=== PATIENT | female | born 1985 | race African-American/Black ===

== ENCOUNTER 2017-01-09 14:23 | Emergency (ER) | payer MEDICAID ==
[~2017-01-09] VITALS: Ht 165.1 cm; Wt 99.3 kg
[~2017-01-09 14:23] MED LIST: ALBUTEROL SULF8.5 GM INH; BIAXIN500 MG ORAL; ERYTHROMYCIN3.5 GM LEFT EYE; FIORICET1 EA ORAL; IBUPROFEN600 MG ORAL; LEVOTHYROXINE75 MCG ORAL; LEVOTHYROXINE88 MCG ORAL; METRONIDAZOLE500 MG ORAL; ONDANSETRON ODT4 MG ORAL; PREDNISONE20 MG ORAL; TRAMADOL HCL50 MG ORAL
[2017-01-09] MEDS ORDERED: Norco 5mg/325mg tab ORAL ONE (15:00)
[2017-01-09 15:01] VITALS: BP 126/74
--- NOTE | 2017-01-09 15:19 | Emergency Room Report ---
History of Present Illness General Chief Complaint: General Complaint Source: Patient, Medical Record Present Illness HPI 31-year-old female presents to the emergency department complaining of 5/10 in severity with intermittent 8/10 in severity exacerbations of right localized adnexal pain times one day. Patient states that she is currently on her menstrual cycle for the past 3 days and notes her cycle to be heavier than normal. Patient states that she is regular monthly she takes oral contraception and has had no prior history of ovarian cysts, ectopic pregnancies. denies vaginal discharge, lesions, or tender lymph nodes. Patient states that she does not have an appendix. Patient reports some nausea during episodes of pain. Patient denies dysuria, frequency, vomiting, constipation or diarrhea. She denies fevers or chills. Denies CP, Palpitations, LOC, AMS, dizziness, Changes in Vision, Sensation, paresthesias, or a sudden severe headache. Allergies: Coded Allergies: [place] (Verified Allergy, Unknown, BLISTERS, 04/26/15) PINEAPPLE (Verified Adverse Reaction, Unknown, VOMITTING, 04/26/15) Patient History Past Medical History: see triage record Past Surgical History: none Pertinent Family History: none Last Menstrual Period: 01/07/17 Now: No Reviewed Nursing Documentation: PMH: Agreed, PSxH: Agreed Nursing Documentation-PMH Past Medical History: No History, Except For Review of Systems All Other Systems: negative except mentioned in HPI Physical Exam Vital Signs Date Time Temp Pulse Resp B/P (MAP) Pulse Ox O2 Delivery O2 Flow Rate FiO2 01/09/17 14:27 98.6 80 18 126/74 99 Room Air Sp02 EP Interpretation: reviewed, normal General Appearance: no apparent distress, alert, GCS 15, non-toxic Head: normocephalic, atraumatic Eyes: bilateral eye normal inspection, bilateral eye PERRL ENT: hearing grossly normal, normal voice Neck: full range of motion Respiratory: lungs clear, normal breath sounds, speaking full sentences Cardiovascular #1: regular rate, rhythm Gastrointestinal: normal bowel sounds, non tender, soft, no guarding, no rebound, other - normal exam Rectal: deferred Genitourinary: normal inspection, no CVA tenderness, bladder normal, ext genitalia/vag normal, other - right adnexal TTP, pt. currently has tampon in and wants to defer speculum exam as US is pending Musculoskeletal: back normal, gait/station normal, normal range of motion, non- tender Neurologic: alert, oriented x3, responsive, motor strength/tone normal, sensory intact, speech normal Skin: normal color, no rash, warm/dry, well hydrated Lymphatic: no adenopathy Medical Decision Making PA Attestation Dr. Aguilera is my supervising Physician whom patient management has been discussed with. Diagnostic Impression: Primary Impression: Uterine fibroid Qualified Codes: D25.9 - Leiomyoma of uterus, unspecified Additional Impression: Adnexal pain ER Course 31-year-old female presents to the emergency department complaining of 5/10 in severity with intermittent 8/10 in severity exacerbations of right localized adnexal pain times one day. Patient states that she is currently on her menstrual cycle for the past 3 days and notes her cycle to be heavier than normal. Patient states that she is regular monthly she takes oral contraception and has had no prior history of ovarian cysts, ectopic pregnancies. denies vaginal discharge, lesions, or tender lymph nodes. Patient states that she does not have an appendix. Patient reports some nausea during episodes of pain. Patient denies dysuria, frequency, vomiting, constipation or diarrhea. She denies fevers or chills. Denies CP, Palpitations, LOC, AMS, dizziness, Changes in Vision, Sensation, paresthesias, or a sudden severe headache. Ddx considered but are not limited to Diverticulitis, acute appy, ovarian torsion, ectopic , PID tubo-ovarian abscess, anemia ovarian cyst. Vital signs: are WNL, pt. is afebrile H&PE are most consistent with possible ovarian cyst, however due to presentation will r/o torsion or ectopic. - I do not suspect significant blood loss that would require transfusion at this time. pt. does not exhibit clinical signs of anemia. ORDERS: -UA: unremarkable -URINE HCG:Negative -Pelvic US Complete: "Uterine fibroid noted, small follicles in the bilateral ovaries, no free-fluid, no ovarian torsion" --Per official radiology report- Please see report for specific details. ED INTERVENTIONS: - 5mg [place] -d/w pt. the results of her US, and recommended OBGYN follow up. DISCHARGE: At this time pt. is stable for d/c to home. Will provide printed patient care instructions, and any necessary prescriptions. Care plan and follow up instructions have been discussed with the patient prior to discharge. Labs Test 01/09/17 14:55 Urine Color Pale yellow Urine Appearance Clear Urine pH 5 (4.5-8.0) Urine Specific [place] 1.020 (1.005-1.035) Urine Protein Negative (NEGATIVE) Urine Glucose (UA) Negative (NEGATIVE) Urine Ketones Negative (NEGATIVE) Urine Occult Blood Negative (NEGATIVE) Urine Nitrite Negative (NEGATIVE) Urine Bilirubin Negative (NEGATIVE) Urine Urobilinogen Normal MG/DL (0.0-1.0) Urine Leukocyte Esterase Negative (NEGATIVE) Urine HCG, Qualitative Negative Last Vital Signs Date Time Temp Pulse Resp B/P (MAP) Pulse Ox O2 Delivery O2 Flow Rate FiO2 01/09/17 15:01 98.6 70 18 126/74 99 Room Air Disposition: HOME, SELF-CARE Condition: Stable Scripts Iron,Carbonyl/Ascorbic Acid (IRON 100-VITAMIN C TABLET) 1 Each Tablet 1 EACH PO DAILY, #30 TAB Prov: Rosaura Seals 01/09/17 Ibuprofen* (MOTRIN*) 600 Mg Tablet 600 MG ORAL THREE TIMES A DAY, #30 TAB 0 Refills Prov: Rosaura Seals 01/09/17 Departure Forms: Return to Work Return to Work Date: Jan 11, 2017 Work Restrictions: None Return to Full Activity: Jan 11, 2017 Patient Instructions: Uterine Fibroids Additional Instructions: Take medications as directed. Follow up with a Primary Care Provider or OBGYN in 3-5 days, even if your symptoms have resolved. --Please review list of primary care clinics, if you do not already have a primary care provider Return sooner to ED if new symptoms occur, or current symptoms become worse. - Please note that this Emergency Department Report was dictated using [employer]career development specialist technology software, occasionally this can lead to erroneous entry secondary to interpretation by the dictation equipment. Rosaura Seals Jan 09, 2017 15:19
[2017-01-09 15:22] LABS: APPEARANCE,URINE CLEAR; KETONES,URINE NEGATIVE (NEGATIVE); LEUKOCYTE ESTERASE ,URINE NEGATIVE (NEGATIVE); NITRITE,URINE NEGATIVE (NEGATIVE); PH,URINE 5 (4.5-8.0); PROTEIN,URINE NEGATIVE (NEGATIVE); UROBILINOGEN,URINE NORMAL MG/DL (0.0-1.0)
[2017-01-09] MEDS ORDERED: Ketorolac 60mg Inj IM ONE (16:30)
[2017-01-09] MEDS ORDERED: IRON 100-VITAM1 EACH PO (17:16)
[2017-01-09] MEDS ORDERED: IBUPROFEN600 MG ORAL (17:16)
--- NOTE | 2017-01-09 17:20 | Diagnostic Imaging Report ---
Indication: Right adnexal pain, heavy menstruation Technique: Transabdominal and transvaginal images Comparison: Findings: Uterus measures 7.8 cm length by 4 cm AP. The endometrium measures 2 mm thick. There is a slightly hyperechoic 15 x 12 mm uterine fundal fibroid. Right ovary measures 3.3 cm in length. The left ovary measures 3 cm in length. No adnexal mass demonstrated. No free cul-de-sac fluid Impression: Small uterine fundal fibroid. Otherwise unremarkable
[2017-01-09 17:52] VITALS: BP 122/72
== END 2017-01-09 17:52 | disposition home or self-care (01) ==
LOC: EMR 17:32
DX: D25.9 Leiomyoma of uterus, unspecified (principal); R10.2 Pelvic and perineal pain
CPT/HCPCS: 76830; 76856; 81003; 81025; 96372; 99284

== ENCOUNTER 2017-07-31 09:44 | Emergency (ER) | payer MEDICAID ==
[~2017-07-31] VITALS: Ht 165.1 cm; Wt 103.0 kg
[~2017-07-31 09:44] MED LIST changes: +IRON 100-VITAM1 EACH PO
[2017-07-31] MEDS ORDERED: SRONYX (09:54)
[2017-07-31 10:20] VITALS: BP 132/76
[2017-07-31 10:30] VITALS: BP 132/76
[2017-07-31] MEDS ORDERED: ROBAXIN-750750 MG PO (10:33)
[2017-07-31] MEDS ORDERED: IBUPROFEN600 MG ORAL (10:33)
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
== END 2017-07-31 10:30 | disposition home or self-care (01) ==
LOC: EMR 10:17
DX: S33.5XXA Sprain of ligaments of lumbar spine, initial encounter (principal); V43.52XA Car driver injured in collision with other type car in traffic accident, initial encounter; Y92.410 Unspecified street and highway as the place of occurrence of the external cause; Z91.018 Allergy to other foods
CPT/HCPCS: 99284

== ENCOUNTER 2018-11-30 20:09 | Emergency (ER) | payer MEDICAID ==
[~2018-11-30] VITALS: Ht 165.1 cm; Wt 104.8 kg
[~2018-11-30 20:09] MED LIST changes: +ROBAXIN-750750 MG PO; +SRONYX
--- NOTE | 2018-11-30 20:29 | NUR ---
ED Nurse Note: pt walked in c/o dry cough, body ache, chest pain and sorethroat x 1 wk, pt denies fever nor nasal congestion. no cough at this time, airway intact, will cont monitor.
[2018-11-30 20:31] VITALS: BP 124/83
--- NOTE | 2018-11-30 20:59 | Emergency Room Report ---
History of Present Illness General Chief Complaint: Upper Respiratory Illness Source: Patient Present Illness HPI Patient presents with 3 weeks of cough. She was seen a month ago by her doctor and prescribed an inhaler. She is underneath your vent with dust at her work she is a cashier receptionist. She is not exposed to cigarette smoke. She has some posttussive vomiting on occasionally. The phlegm is clear. She denies any chest pain. There is no calf pain or leg swelling. She rates the discomfort in her chest is 2/10 and mainly with coughing. No fevers, chills, sore throat, palpitations, nausea, diarrhea, dysuria, abdominal pain, joint pain, rashes, depression, anxiety, visual changes, headache. Allergies: Coded Allergies: [place] (Verified Allergy, Unknown, BLISTERS, 04/26/15) PINEAPPLE (Verified Adverse Reaction, Unknown, VOMITTING, 04/26/15) Patient History Past Medical History: see triage record Past Surgical History: judith, Social History: Denies: smoking Social History Narrative [employer] Last Menstrual Period: 10/2018 Now: No : 1 Para: 1 Reviewed Nursing Documentation: PMH: Agreed; PSxH: Agreed Review of Systems All Other Systems: negative except mentioned in HPI Physical Exam Vital Signs Date Time Temp Pulse Resp B/P (MAP) Pulse Ox O2 Delivery O2 Flow Rate FiO2 11/30/18 20:18 98.2 84 16 124/83 (97) 97 Room Air Sp02 EP Interpretation: reviewed, normal General Appearance: well appearing, no apparent distress, GCS 15 Head: normocephalic, atraumatic Eyes: bilateral eye normal inspection, bilateral eye PERRL, bilateral eye EOMI ENT: normal pharynx, moist mucus membranes Neck: full range of motion Respiratory: chest non-tender, lungs clear, normal breath sounds Cardiovascular #1: regular rate, rhythm Cardiovascular #2: 2+ radial (R) Gastrointestinal: normal inspection, overweight Genitourinary: no CVA tenderness Musculoskeletal: back normal, gait/station normal, no calf tenderness Neurologic: alert, oriented x3, grossly normal Psychiatric: mood/affect normal Skin: no rash Medical Decision Making Diagnostic Impression: Primary Impression: Cough Additional Impression: Bronchospasm ER Course Patient presents with persistent nonproductive cough. Differential includes bronchospasm, bronchitis, viral syndrome, pulmonary embolus amongst others. no evidence of bacterial etiology. The patient will be given prednisone and a breathing treatment here. Improved with breathing treatment. Discussed assessment and treatment plan with patient. She understands. No medical emergency at this time. Patient stable for outpatient observation and treatment Last Vital Signs Date Time Temp Pulse Resp B/P (MAP) Pulse Ox O2 Delivery O2 Flow Rate FiO2 11/30/18 22:04 98.2 80 18 120/86 99 Room Air 11/30/18 21:22 21 Status: improved Disposition: HOME, SELF-CARE Condition: Improved Scripts Prednisone* (PREDNISONE*) 20 Mg Tablet 40 MG ORAL DAILY, #10 TAB Prov: Nick Hardy MD 11/30/18 Albuterol Sulfate* (ALBUTEROL SULFATE MDI*) 8.5 Gm Hfa.aer.ad 2 PUFF INH Q6H, #1 EA 0 Refills Prov: Nick Hardy MD 11/30/18 Guaifenesin/Codeine Phos* (ROBITUSSIN AC*) 118 Ml Liquid 1 TSP ORAL Q6H PRN for For Cough, #118 ML 0 Refills Prov: Nick Hardy MD 11/30/18 Nick Hardy MD Nov 30, 2018 20:59
[2018-11-30] MEDS ORDERED: Albuterol ud Inhalation HHN ONE (21:00)
[2018-11-30] MEDS ORDERED: Ipratropium 0.02% Inh Soln 2.5ml UD HHN ONE (21:00)
--- NOTE | 2018-11-30 21:07 | NUR ---
ED Nurse Note: RT at the bedside for breathing tx.
[2018-11-30] MEDS ORDERED: GUAIFENESIN-CO118 M1 ORAL (21:53)
[2018-11-30] MEDS ORDERED: ALBUTEROL SULF8.5 GM INH (21:53)
[2018-11-30] MEDS ORDERED: PREDNISONE20 MG ORAL (21:53)
[2018-11-30 22:04] VITALS: BP 120/86
--- NOTE | 2018-11-30 22:04 | NUR ---
ED Nurse Note: pt cleared to be d/c per er provider, pt discharge and aftercare instruction provided w/ prescription, pt education done via discussion and handout, pt advised to follow up with pcp or return to ed if changes in condition, vss, ambulatory w/ steady gait, pt verbalized understanding, pt left w/ all belongings.
== END 2018-11-30 22:04 | disposition home or self-care (01) ==
LOC: EMR 20:50
DX: J98.01 Acute bronchospasm (principal); Z91.018 Allergy to other foods; Z90.49 Acquired absence of other specified parts of digestive tract
CPT/HCPCS: 94640; 94664; J7512; Z7502; 99284